=== PATIENT | female | born 1975 | race Caucasian/White ===

== ENCOUNTER 2024-06-24 01:59 | Emergency (ER) | payer OTHER ==
[~2024-06-24] VITALS: Ht 162.6 cm; Wt 73.0 kg
[2024-06-24 02:13] VITALS: O2SAT 98
[2024-06-24 02:37] VITALS: TEMP 98.2
[2024-06-24] MEDS: ACETAMINOPHEN 500MG TABLET PO ONE (02:37)
[2024-06-24 04:24] VITALS: BP 137/51; PULSE 90; RESP 16; O2SAT 98
== END 2024-06-24 04:35 | disposition home or self-care (01) ==
LOC: ER 02:20
DX: S09.90XA Unspecified injury of head, initial encounter (principal); I10 Essential (primary) hypertension; X58.XXXA Exposure to other specified factors, initial encounter; Y93.89 Activity, other specified; Y92.89 Other specified places as the place of occurrence of the external cause; Y99.8 Other external cause status
CPT/HCPCS: 99284